=== PATIENT | female | born 1995 | race Caucasian/White ===

== ENCOUNTER 2017-07-31 07:13 | Day surgery (SDC) | payer OTHER ==
[~2017-07-31 07:13] MED LIST: Acetaminophen TAB* 325 MG PO ONE; Buffered Lidocaine 0.9% SYRIN* 5 ML/SYR SYRINGE INTRADERM ONE; Bupivacaine 0.25% SDV* 30 ML ONE; Dexamethasone IV* 4 MG/ML 1 ML (4 MG) IV SLOW PU ONE; Famotidine IV* 10 MG/ML 2 ML (20 mg) IV ONE
[2017-07-31] MEDS ORDERED: Dexamethasone IV* 4 MG/ML 1 ML (4 MG) ONE (07:21)
[2017-07-31] MEDS ORDERED: Famotidine IV* 10 MG/ML 2 ML (20 mg) ONE (07:21)
[2017-07-31] MEDS ORDERED: Acetaminophen TAB* 325 MG ONE (07:21)
[2017-07-31] MEDS ORDERED: Buffered Lidocaine 0.9% SYRIN* 5 ML/SYR SYRINGE ONE (07:21)
[2017-07-31] MEDS ORDERED: Rocuronium* 10 MG/ML VIAL ONE (09:04)
[2017-07-31] MEDS ORDERED: fentaNYL* 50 MCG/ML 2 ML VIAL (100 MCG VIAL) ONE ×3 (09:08→12:00)
[2017-07-31] MEDS ORDERED: Midazolam* 1 MG/ML 2 ML VIAL (2 MG) ONE (09:08)
[2017-07-31] MEDS ORDERED: Scopolamine 1.5 mg* PATCH TRANSDERM PRN (09:27)
[2017-07-31] MEDS ORDERED: HYDROcodone/ACETAMIN 5-325 MG* 1 TAB PO PRN ×2 (09:27→12:00)
[2017-07-31] MEDS ORDERED: Ondansetron INJ* 2 MG/ML VIAL IV PRN (09:27)
[2017-07-31] MEDS ORDERED: HYDROmorphone INJ* 1 MG/ML CARPUJECT SYRINGE IV PRN (09:27)
[2017-07-31] MEDS ORDERED: Ibuprofen TAB* 600 MG PO PRN (09:27)
[2017-07-31] MEDS ORDERED: oxyCODONE TAB* 5 MG TAB PO PRN (09:27)
[2017-07-31] MEDS ORDERED: ceFAZolin 2 GM PREMIX (*) 2 GM/50 ML BAG IVPB ONE (09:35)
[2017-07-31] MEDS ORDERED: Phenylephrine IV* 40 MCG/ML 10 ML SYRINGE ONE (10:43)
[2017-07-31] MEDS ORDERED: Ketorolac INJ* 30 MG/ML 1 ML VIAL ONE (10:51)
[2017-07-31] MEDS ORDERED: Ondansetron INJ* 2 MG/ML VIAL ONE ×2 (10:51→11:45)
[2017-07-31] MEDS ORDERED: Neostigmine Methylsulfate* 2 MG/2 ML SYRINGE ONE (11:01)
[2017-07-31] MEDS ORDERED: Glycopyrrolate IV* 0.2 MG/ML 1 ML VIAL ONE (11:01)
[2017-07-31] MEDS ORDERED: oxyCODONE/Acetamin 5/325 MG* TAB PO PRN (11:46)
[2017-07-31] MEDS ORDERED: Scopolamine 1.5 mg* PATCH ONE (11:54)
[2017-07-31] MEDS: fentaNYL* 50 MCG/ML 2 ML VIAL (100 MCG VIAL) IV PRN ×2 (12:01→12:33)
[2017-07-31] MEDS ORDERED: PROCHLORPERAZINE INJ 5 MG/ML 2 ML VIAL ONE (13:48)
[2017-07-31] MEDS ORDERED: HYDROcodone/ACETAMIN 5-325 MG* 1 TAB ONE (13:48)
[2017-07-31] MEDS ORDERED: Ondansetron ODT TAB* 4 MG ONE (16:14)
[2017-07-31 16:42] VITALS: BP 102/64
--- NOTE | 2017-08-01 08:31 | OP ---
CC: [facility] * DATE OF OPERATION: 07/31/17 - [facility] DATE OF : 89 SURGEON: Jose Gant MD. HUMAN RESOURCES OFFICER: AMANDA Oviedo. ANESTHESIOLOGIST: Bri Miller MD. ANESTHESIA: General endotracheal. PRE-OP DIAGNOSIS: Symptomatic cholelithiasis. POST-OP DIAGNOSIS: Symptomatic cholelithiasis. OPERATIVE PROCEDURE: Laparoscopic cholecystectomy. ESTIMATED BLOOD LOSS: Minimal. IV FLUIDS: Crystalloid. SPECIMENS: Gallbladder. DRAINS: None. COMPLICATIONS: None. COUNTS: Instrument, needle, and sponge counts were correct. DESCRIPTION OF PROCEDURE: The patient was brought to the operating room and placed on the table supine. Sequential compression devices were placed on both lower extremities. General anesthesia was administered. The abdomen was prepped and draped in the usual sterile fashion. Time-out was performed. Local anesthetic was infiltrated into the skin and the soft tissue prior to making each incision. Entry into the abdomen was through a transumbilical vertical incision using an open technique and after accessing the peritoneal cavity, a 12-mm trocar was placed and carbon dioxide was insufflated to a pressure of 15 mmHg. Under direct visualization, 5-mm trocars were placed in the subxiphoid position and two in the right upper quadrant. The gallbladder was identified. It appeared to be distended with evidence of chronic inflammation, no acute inflammation. The fundus of the gallbladder was retracted cephalad and the infundibulum was noted to be adherent to portions of the omentum and sharp dissection was used to lyse these adhesions. Once freed, the infundibulum was grasped and left caudally and laterally to expose the triangle of Calot. The peritoneum investing this was incised over the gallbladder and on the lateral aspect of the gallbladder the peritoneum was incised as well. Then dissection proceeded to dissect out the cystic artery, which was doubly clipped and divided, and then the cystic duct which had also been dissected out in the critical view obtained, was doubly clipped and divided. The gallbladder was freed from its attachments to the liver using cautery and scissors dissections. Once the gallbladder was freed, it was placed into an endoscopic retrieval bag and retrieved through the umbilical site. Inspection subsequently revealed excellent hemostasis and clips to be intact. Ports were removed under direct visualization. There was some bleeding from the lateral most 5 mm port site and therefore hemostasis was achieved with transabdominal passage of 0 Vicryl suture. Additionally, 0 Vicryl suture was used in [id number] fashion to approximate the umbilical site. The remaining trocars were removed under direct visualization, carbon dioxide was released. Skin incisions were closed with 4-0 Monocryl in subcuticular fashion. The Steri-strips were applied. The patient tolerated the procedure well. He was extubated and transferred to the Recovery in a stable condition. [id number]/[facility] #: [id number] [facility]
[2017-08-03] MEDS ORDERED: Scopolamine PATCH Remove* 1 NOTE MISC PATCH OFF ONE (09:28)
== END 2017-07-31 16:20 | disposition home or self-care (01) ==
LOC: OR 07:13
PROVIDERS: ATTEND Surgery
DX: K80.10 Calculus of gallbladder with chronic cholecystitis without obstruction (principal)
CPT/HCPCS: 81025; 88304; A9270-GY; C1776; J0690; J0780; J1100; J1885; J2250; J2405; J3010